=== PATIENT | male | born 1985 | race Caucasian/White ===

== ENCOUNTER → 2020-02-06 | Outpatient (CLI) | payer OTHER ==
[2020-02-06 09:14] LABS: PV SEMEN COLOR STRAW; PV SEMEN PH 8.4 (>7.1); PV SEMEN VISCOSITY NORMAL (NORMAL); PV VOLUME 2.5 mL (>1.4)
[2020-02-06 09:15] LABS: PV NONMOTILE CONCENTRATION 0.3 X10^6/mL; PV NONMOTILE COUNT1 2; PV NONMOTILE COUNT2 3; PV SEMEN LIQUEFACTION 25 MINUTES (<61)
[2020-02-06 09:16] LABS: PV ROUND CELL CONCENTRATION 0.8 X10^6/mL (<5.1); PV ROUND CELL COUNT1 9; PV ROUND CELL COUNT2 7; PV SPERM CONCENTRATION 0.3 X10^6/mL (0.0); PV SPERM MOTILITY 0 % (0); PV STRAIGHT MOTILITY CNT 1 0; PV STRAIGHT MOTILITY CNT 2 0
== END ==
LOC: LAB 09:02
PROVIDERS: ATTEND Student in an Organized Health Care Education/Training Program
DX: Z30.2 Encounter for sterilization (principal)
CPT/HCPCS: 89321